=== PATIENT | female | born 2000 | race Caucasian/White ===

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

== ENCOUNTER 2019-02-25 14:28 | Emergency (ER) | payer SELFPAY | END 2019-02-25 15:46 | disposition home or self-care (01) | LOC: ERS 14:28 | DX: J11.1 Influenza due to unidentified influenza virus with other respiratory manifestations (principal) | CPT/HCPCS: 99283 ==

== ENCOUNTER 2020-04-28 19:38 | Emergency (ER) | payer OTHER ==
[2020-04-28] MEDS ORDERED: Bacitracin 1 PK ONE (21:00)
== END 2020-04-28 21:12 | disposition home or self-care (01) ==
LOC: ERS 19:38
DX: S90.31XA Contusion of right foot, initial encounter (principal); S80.11XA Contusion of right lower leg, initial encounter; L03.115 Cellulitis of right lower limb; V89.9XXA Person injured in unspecified vehicle accident, initial encounter

== ENCOUNTER 2021-12-01 10:05 | Emergency (ER) | payer OTHER | END 2021-12-01 12:47 | disposition home or self-care (01) | LOC: ERS 10:05 | DX: R04.0 Epistaxis (principal); R07.89 Other chest pain; R51.9 Headache, unspecified; F17.290 Nicotine dependence, other tobacco product, uncomplicated | CPT/HCPCS: 36415; 84484; 93005 ==